=== PATIENT | female | born 1980 | race Caucasian/White ===

== ENCOUNTER 2018-12-11 01:02 | Inpatient (IN) | payer OTHER ==
[~2018-12-11] VITALS: Ht 162.6 cm; Wt 83.2 kg
[2018-12-11] VITALS (54 sets, daily range): BP systolic 99–163; BP diastolic 53–93; PULSE 58–88; TEMP 97.5–98.1
[~2018-12-11 01:02] MED LIST: BIRTH CONTROL PILLS; NO HOME MEDICATIONS; PRENATAL VITAMI1 TAB PO
--- NOTE | 2018-12-11 01:15 | NUR ---
G2L1. 38-4. Ambulatory to LDR 2 with spouse. Clean gown on. EFM and TOCO explained and applied. Pt states she has been having contractions intermittently throughout the day. She states since 2200 they have been more consistent and now are 5 minutes apart. Pt breathing through contractions. Palpate firm. Pt denies LOF or vaginal bleeding. Reports good movement. SVE 2-3/80/-2. Assessment compelted and plan of care explained to pt and who verbalize their understanding. Call light within reach.
--- NOTE | 2018-12-11 02:20 | NUR ---
SVE unchanged. Pt in a lot of pain and states she would like to wait one more hour. Will continue to monitor. 0320: SVE /-2. Plan of care explained to pt and . 0329: updated on pts status. See physican notification. Pt updated on plan of care and admit. Questions answered. Pt Requesting epidural at this time 0345: IV started and labs obtained via IV site. LR bolus infusing without difficulties. Chi WANG notified. 0400: Chi WANG at bedside. Procedure explained. 0402: Single shot administered by Chi WANG. See anesthesia records. 0410: Pt repositioned to wedge right position per request. Plan of care and safety precautions explained to pt and who verbalize understanding. 0510: Najera inserted without difficulties and UA obtained per orders. SVe 3-/-2. Plan of care explained to pt. Call light within reach.
[2018-12-11 03:57] LABS: BASO % 0.3 % (0.0-2.0); EOS # 0.1 (0.0-0.7); GRAN # 7.4 (1.4-6.5); GRAN % 70.3 % (42.2-75.2); HEMATOCRIT 35.1 % (37.0-47.0); HEMOGLOBIN 12.3 g/dl (12.5-16.0); LYMPH # 2.2 (1.2-3.4); LYMPH % 21.2 % (20.0-51.0); MEAN CELL VOLUME 93 fl (80.0-100.0); MEAN CORPUSCULAR HEMOGLOBIN 33 pg (27.0-31.0); MEAN CORPUSCULAR HGB CONC 35 g/dl (33.0-37.0); MEAN PLATELET VOLUME 10.7 fl (7.4-10.4); MONO # 0.7 (0.1-0.6); MONO % 6.6 % (1.7-9.3); PLATELET COUNT 213 K/mm3 (130-400); RED BLOOD COUNT 3.78 M/mm3 (4.10-5.30); REDCELL DISTRIBUTION WIDTH-CV 13.1 % (11.5-14.5)
[2018-12-11 04:07] LABS: ALBUMIN 3.3 gm/dL (3.5-5.0); BILIRUBIN,TOTAL 0.9 mg/dL (0.0-1.0); CALCIUM 9.1 mg/dL (8.4-10.2); CREATININE, serum 0.49 (0.52-1.25); POTASSIUM 3.9 mmol/L (3.4-5.0); TOTAL PROTEIN 6.4 gm/dL (6.4-8.2)
[2018-12-11 05:20] LABS: COLLECTION METHOD CLEAN CATCH
[2018-12-11 05:26] LABS: MUCOUS Present /lpf; PH 7 (5-8); SQUAMOUS EPITHELIAL 0-2 /hpf; URINE APPEARANCE Clear; URINE BACTERIA Rare /hpf; URINE BILIRUBIN Negative (NEGATIVE); URINE BLOOD Negative (NEGATIVE); URINE COLOR Yellow; URINE GLUCOSE Negative (NEGATIVE); URINE KETONE 1+ (NEGATIVE); URINE LEUKOCYTE ESTERASE Negative (NEGATIVE); URINE NITRATE Negative (NEGATIVE); URINE PROTEIN(semi-quant) Negative (NEGATIVE); URINE UROBILINOGEN Negative (NEGATIVE); URINE WBC 0-2 /hpf
--- NOTE | 2018-12-11 11:15 | NUR ---
SVE unchanged. Dr. Diaz notified. See physician notification. Pt prepped for csection. LR bolus infusing. No questions or concerns at this time.
[2018-12-12 03:45] VITALS: BP 117/77; PULSE 72; TEMP 98.3
[2018-12-12] MEDS ORDERED: PERCOCET 325 MG1 TA2 PO (07:43)
[2018-12-12] MEDS ORDERED: IBU600 MG PO (07:43)
[2018-12-12 08:00] VITALS: BP 120/78; PULSE 69; TEMP 98.1
--- NOTE | 2018-12-12 11:04 | NUR ---
Initial visit attempt; Nurse with patient, Assistant [employer] left card of congratulations and God's blessings to the family for the of their son and information regarding the availability of spiritual care at [facility].
[2018-12-12 17:10] VITALS: BP 138/96; PULSE 83; TEMP 97.8
[2018-12-12 17:57] VITALS: BP 135/86
[2018-12-12 21:10] VITALS: BP 127/76; PULSE 70; TEMP 98
[2018-12-13 06:20] VITALS: BP 134/89; PULSE 72; TEMP 97.8
== END 2018-12-13 12:05 | disposition home or self-care (01) | DRG 788 ==
LOC: LDRO 01:02 → LDR 01:15 → LDRO 03:36 → OB 03:37 → LDR 03:37 → OB 12:00
PROVIDERS: Obstetrics & Gynecology; ADMIT Obstetrics & Gynecology
PROC: 10D00Z1 Extraction of Products of Conception, Low, Open Approach (ICD-10-PCS; principal; 2018-12-11)
DX: O34.211 Maternal care for low transverse scar from previous cesarean delivery (principal); Z3A.38 38 weeks gestation of pregnancy; Z37.0 Single live birth; O32.4XX0 Maternal care for high head at term, not applicable or unspecified; O76 Abnormality in fetal heart rate and rhythm complicating labor and delivery; Z88.0 Allergy status to penicillin
CPT/HCPCS: J0690; J1885; J2270; J2370; J2405; J2590; J2795; J3010; J7120